=== PATIENT | male | born 1970 | race American Indian/Alaskan Native ===

== ENCOUNTER 2023-02-18 12:10 | Emergency (ER) | payer BC ==
[2023-02-18] MEDS ORDERED: LORazepam 1 MG Tab PO ONE (13:27)
[2023-02-18 13:59] LABS: ESTIMATED GFR 112 mL/min (>60)
[2023-02-18] MEDS ORDERED: Potassium Chloride 20 MEQ Tab.ER PO ONE (14:29)
== END 2023-02-18 15:42 ==
LOC: JP.ED 12:10
DX: F10.130 Alcohol abuse with withdrawal, uncomplicated (principal); E78.00 Pure hypercholesterolemia, unspecified; E11.9 Type 2 diabetes mellitus without complications; Z72.0 Tobacco use; Z79.84 Long term (current) use of oral hypoglycemic drugs; Z79.899 Other long term (current) drug therapy; Z20.822 Contact with and (suspected) exposure to COVID-19; Y90.6 Blood alcohol level of 120-199 mg/100 ml
CPT/HCPCS: 36415; 80053; 80305; 80307; 81001; 85025; 85610; 85730; 87635; 99285; A9270; U0002